=== PATIENT | male | born 1995 | race Two or more races ===

== ENCOUNTER 2018-04-30 15:03 | Emergency (ER) | payer MEDICAID, OTHER ==
[~2018-04-30] VITALS: Ht 170.2 cm; Wt 94.3 kg
[2018-04-30 15:20] VITALS: BP 127/79
== END 2018-04-30 16:46 | disposition home or self-care (01) ==
LOC: ER 15:06
DX: S01.01XA Laceration without foreign body of scalp, initial encounter (principal); W22.8XXA Striking against or struck by other objects, initial encounter; Y93.89 Activity, other specified; Y92.89 Other specified places as the place of occurrence of the external cause; Y99.8 Other external cause status
CPT/HCPCS: 12002

== ENCOUNTER 2018-05-07 08:42 | Emergency (ER) | payer MEDICAID ==
[~2018-05-07] VITALS: Ht 170.2 cm; Wt 94.3 kg
[2018-05-07 08:53] VITALS: BP 150/84
== END 2018-05-07 09:29 | disposition home or self-care (01) ==
LOC: ER 08:42
DX: S01.01XD Laceration without foreign body of scalp, subsequent encounter (principal); X58.XXXD Exposure to other specified factors, subsequent encounter